=== PATIENT | male | born 1985 ===

== ENCOUNTER 2018-03-17 17:48 | Emergency (ER) | payer BC ==
[2018-03-17 18:03] VITALS: BP 136/99
--- NOTE | 2018-03-17 18:24 | UC ---
Truncal Trauma HPI - HPI Summary HPI Summary: 32 yo male presents with left rib pain for the last week. He tells me that with certain movements and with touching the area he will have pain. Unsure if he injured or pulled a muscle - but does lift boxes at work. He does have a hx of spontaneous pneumothorax on the LEFT. Denies fever, chills, recent illness, SOB , cough, chest pain, palpitations. He has not taken anything OTC for his discomfort. - History Of Current Complaint Chief Complaint: UCUpperExtremity Stated Complaint: RIB COMPLAINT Time Seen by Provider: 03/17/18 18:14 Hx Obtained From: Patient Onset/Duration: Gradual Onset Severity Initially: Mild Severity Currently: Mild Pain Intensity: 4 Pain Scale Used: 0-10 Numeric - Allergies/Home Medications Allergies/Adverse Reactions: Allergies Allergy/AdvReac Type Severity Reaction Status Date / Time Penicillins Allergy Severe Hives Verified 03/17/18 18:03 Home Medications: Home Medications Aspirin/Acetaminophen/Caffeine [Excedrin Extra Strength Caplet] 2 each PO PRN [History] Citalopram TAB* [CeleXA TAB*] 60 mg PO DAILY 03/17/18 [History Confirmed ] busPIRone TAB* [Buspar TAB*] 25 mg PO BID 03/17/18 [History Confirmed 03/17/18] raNITIdine HCl [Zantac 150 Maximum Streng] 150 mg PO BID 03/17/18 [History Confirmed 03/17/18] PMH/Surg Hx/FS Hx/Imm Hx - Additional Past Medical History Additional PMH: Spontaneous pneumothorax on left Psychological History: Anxiety, Depression - Surgical History Surgical History: Yes Surgery Procedure, Year, and Place: INTESTINAL RESECTION 02/2015, [facility] - Family History Known Family History: Positive: None - Social History Occupation: Employed Full-time Lives: With Family Alcohol Use: None Substance Use Type: None Smoking Status (MU): Never Smoked Tobacco Review of Systems All Other Systems Reviewed And Are Negative: Yes Constitutional: Positive: Negative Skin: Positive: Negative Respiratory: Positive: Negative Cardiovascular: Positive: Negative Gastrointestinal: Positive: Negative Neurovascular: Positive: Negative Musculoskeletal: Positive: Other: - left rib pain Neurological: Positive: Negative Psychological: Positive: Negative Physical Exam - Summary Physical Exam Summary: GENERAL: NAD. WDWN. No pain distress. SKIN: No rashes, sores, lesions, or open wounds. CHEST: CTAB. No r/r/w. No accessory muscle use. Breathing comfortably and in no distress. CV: RRR. Without m/r/g. Pulses intact. Cap refill <2seconds MSK: LEFT RIBS: ~7th and 8th with TTP. Worse with reaching above head and abduction. NEURO: Alert. Sensations intact hand and all fingers. PSYCH: Age appropriate behavior. Triage Information Reviewed: Yes Vital Signs: Initial Vital Signs Temp 97.8 F 03/17/18 17:58 Pulse 110 03/17/18 17:58 Resp 16 03/17/18 17:58 BP 136/99 03/17/18 17:58 Pulse Ox 98 03/17/18 17:58 Vital Signs Reviewed: Yes Truncal Trauma Course/Dx - Course Course Of Treatment: Chest wall pain at anterior/lateral 7th-8th ribs. XR: No radiologist read after 1800, therefore wet read by myself is negative for fx. Suspect muscle strain. Advised pt to apply heat to the area and take ibuprofen for discomfort. f/u if symptoms persist - Differential Dx/Diagnosis Provider Diagnosis: Intercostal muscle strain Discharge - Sign-Out/Discharge Documenting (check all that apply): Patient Departure All imaging exams completed and their final reports reviewed: No - Discharge Plan Condition: Stable Disposition: HOME Patient Education Materials: Muscle Strain (DC) Referrals: No Primary Care Phys,NOPCP [Primary Care Provider] - Additional Instructions: If you develop a fever, shortness of breath, chest pain, new or worsening symptoms - please call your PCP or go to the ED. Your blood pressure was high at todays visit. Please see your primary provider within 4 weeks for recheck and re-evaluation. - Billing Disposition and Condition Condition: STABLE Disposition: Home
--- NOTE | 2018-03-18 12:46 | UC ---
- Progress Note Progress Note: RADIOLOGY REPORT REVIEWED. NO FRACTURE OR PNEUMOTHORAX. NO CHANGE IN MGMT. Course/Dx - Diagnoses Provider Diagnoses: Intercostal muscle strain Discharge - Sign-Out/Discharge Documenting (check all that apply): Post-Discharge Follow Up All imaging exams completed and their final reports reviewed: Yes - Discharge Plan Condition: Stable Disposition: HOME Patient Education Materials: Muscle Strain (DC) Referrals: No Primary Care Phys,NOPCP [Primary Care Provider] - Additional Instructions: If you develop a fever, shortness of breath, chest pain, new or worsening symptoms - please call your PCP or go to the ED. Your blood pressure was high at todays visit. Please see your primary provider within 4 weeks for recheck and re-evaluation. - Billing Disposition and Condition Condition: STABLE Disposition: Home
== END 2018-03-17 19:00 | disposition home or self-care (01) ==
LOC: UCEAST 17:48
DX: S29.011A Strain of muscle and tendon of front wall of thorax, initial encounter (principal); X50.0XXA Overexertion from strenuous movement or load, initial encounter; Y93.89 Activity, other specified; Y92.89 Other specified places as the place of occurrence of the external cause; Y99.0 Civilian activity done for income or pay; Z88.0 Allergy status to penicillin; F41.8 Other specified anxiety disorders
CPT/HCPCS: 99201; G0463